=== PATIENT | female | born 1950 | race Asian ===

== ENCOUNTER 2016-06-27 02:11 | Inpatient (IN) | payer OTHER ==
[2016-06-27] VITALS (7 sets, daily range): BP systolic 104–158; BP diastolic 63–88; PULSE 50–86; RESP 14–18; TEMP 97–99.8; O2SAT 95–100
[~2016-06-27] VITALS: Ht 162.6 cm; Wt 63.5 kg
[2016-06-27] MEDS ORDERED: NACL 0.9% 1,000 ML IV ONE (02:22)
[2016-06-27] MEDS ORDERED: MORPHINE 4 MG/ML INJ. SYRINGE IVP ONE (02:30)
[2016-06-27] MEDS ORDERED: KETOROLAC TROMETHAMINE 30 MG VIAL IVP ONE (02:30)
--- NOTE | 2016-06-27 02:33 | NUR ---
Placed in room 6 . Placed on air sampling and monitoring, blood pressure machine and pulse oximeter. To gown for exam. Side rails up.
--- NOTE | 2016-06-27 02:34 | NUR ---
Pt presents to ED with c/o acute onset of suprapubic/lower abdominal pain 12/05, started 1 hour ago. A&Ox4, denies SOB or chestpain, denies N/V/D. Skin intact. Abdomen soft, bowel sound x4. Will continue to monitor
--- NOTE | 2016-06-27 02:37 | NUR ---
MD matthews at bedside examining pt
[2016-06-27 02:47] LABS: HEMOGLOBIN 12.9 g/dL (12.0-16.0); MEAN CORPUSCULAR VOLUME 87 fL (79.0-98.0)
[2016-06-27] MEDS ORDERED: LIP10 PO (02:52)
[2016-06-27] MEDS ORDERED: AMLO5TAB4 PO (02:52)
[2016-06-27] MEDS ORDERED: ASPI-1063 PO (02:52)
--- NOTE | 2016-06-27 02:52 | NUR ---
Medication reconciliation completed with information provided by - verbal from patient. Any prior medication reconciliation on file was reviewed and corrected.
[2016-06-27 03:01] LABS: HEMATOCRIT 39.4 % (36-48); MEAN CORPUSCULAR HEMOGLOBIN 28 pg (27-31); MEAN CORPUSCULAR HGB CONC 33 % (32-36); PLATELET COUNT (AUTO) 233 K/uL (130-430); RED BLOOD CELL COUNT(AUTO) 4.55 MIL/uL (4.2-6.2); RED CELL DISTRIBUTION WIDTH 12.6 % (9.0-15.0); WHITE BLOOD COUNT (AUTO) 15.2 K/uL (4.8-10.8)
[2016-06-27 03:05] LABS: POTASSIUM 3.3 mmol/L (3.5-5.1); SODIUM SERUM 142 mmol/L (136-145)
[2016-06-27 03:06] LABS: ANION GAP 9 (5-15); CALCIUM 10.3 mg/dL (8.4-11.0); CHLORIDE 104 mmol/L (98-107); CREATININE 1.08 mg/dL (0.55-1.30); GFR AFRICAN AMERICAN 66 mL/min (>90); GLUCOSE 116 mg/dL (70-99); UREA NITROGEN, BLOOD 16 mg/dL (8-21)
[2016-06-27 03:14] LABS: BASOPHILS % (MANUAL) 0 % (0-2); EOSINOPHILS % (MANUAL) 0 % (0-7); LYMPHOCYTES % (MANUAL) 28 % (20-46); MONOCYTES % (MANUAL) 2 % (0-11)
[2016-06-27 03:15] LABS: ALANINE AMINOTRANSFERASE 59 U/L (12-78); ALBUMIN 4.2 g/dL (3.4-4.8); ASPARTATE AMINOTRANSFERASE 54 U/L (10-37); TOTAL BILIRUBIN 0.7 mg/dL (0.0-1.0); TOTAL PROTEIN, SERUM 7.3 g/dL (6.4-8.3)
[2016-06-27 03:19] LABS: BILIRUBIN,URINE NEGATIVE (NEGATIVE); BLOOD, URINE NEGATIVE (NEGATIVE); CLARITY/URINE CLEAR (CLEAR); COLOR,URINE YELLOW (YELLOW); GLUCOSE,URINE NEGATIVE (NEGATIVE); KETONES,URINE NEGATIVE (NEGATIVE); LEUKOCYTE ESTERASE ,URINE TRACE (NEGATIVE); NITRITE, URINE NEGATIVE (NEGATIVE); PROTEIN URINE NEGATIVE (NEGATIVE)
[2016-06-27 03:21] LABS: BACTERIA,URINE FEW /HPF (None Seen); MUCUS,URINE None Seen /LPF (None Seen); RBC,URINE 0-3 /HPF (0-3); URINE AMORPHOUS PHOSPHATES 1+ /HPF (None Seen)
--- NOTE | 2016-06-27 03:55 | NUR ---
Pt in bed, stated she feels comfortable, pain 0/10. Will continue to monitor
[2016-06-27] MEDS ORDERED: PROM6.25 PO (04:54)
[2016-06-27] MEDS ORDERED: AMOX-520 PO (04:54)
[2016-06-27] MEDS ORDERED: ACETAMINOPHEN 325 MG TABLET PO PRN (05:15)
[2016-06-27] MEDS ORDERED: MORPHINE 2 MG/ML INJ. SYRINGE IVP PRN (05:15)
[2016-06-27] MEDS ORDERED: ONDANSETRON HCL 4 MG/2 ML VIAL IVP PRN (05:15)
--- NOTE | 2016-06-27 05:35 | NUR ---
Patient will be admitted to care of . Admitted to med-surg unit. Will go to room 135. Belongings list completed. Summary report printed. Report given to Iván DELUCA.
--- NOTE | 2016-06-27 05:36 | NUR ---
Admission Note Received patient from ER with diagnosis of COLITIS AND HYDRONEPHROSIS. Initial Plan of Care discussed-patient verbalized understanding. Family at bedside. Oriented to room, call light, pain management and safety.
--- NOTE | 2016-06-27 05:49 | NUR ---
Consult Called Reason for Consultation: Hydronephrosis Was consult called: Yes Person who was notified:Marcela Consulting Physician: Leander Triplett MD (Kush PGEU[employer] inhalation therapy aides teacher) Gerentological Physiotherapist Specialty: Urology Gerentological Physiotherapist Phone Number; [phone]
--- NOTE | 2016-06-27 05:58 | NUR ---
NOTES; RECEIVED PT VIA Edwige CAVAZOS/DANYELLE. ORIENTED PT TO ROOM AND CALL LIGHT. PT VERBALIZED UNDERSTANDING. NO ACUTE DISTRESS NOTED. VITAL SIGNS STABLE, AFEBRILE. IV SALINE LOCK TO THE RT HAND, GAUGE 20, PATENT. NO SIGNS OF INFECTION NOTED ON IV SITE. DENIES ANY PAIN AT THIS TIME. ALL PERSONAL BELONGINGS INVENTORY DONE. BELONGINGS AT BEDSIDE. ADVISED PT TO CALL FOR ANY NEED TO ASSIST. PT VERBALIZED UNDERSTANDING. BED LOCKED AND IN LOW POSITION,SIDE RAILS UP X3. CALL LIGHT WITHIN REACH. WILL CONTINUE TO MONITOR.
[2016-06-27] MEDS ORDERED: metroNIDAZOLE 500 mg/NS 100 ML IV ONE (06:17)
[2016-06-27] MEDS: metroNIDAZOLE 500 mg/NS 100 ML IV SCH ×3 (06:18→21:18)
--- NOTE | 2016-06-27 06:50 | NUR ---
NOTES; RESTING QUIETLY, EASILY AROUSED. NO ACUTE DISTRESS NOTED. DENIES ANY PAIN AT THIS TIME. SAFETY MEASURES IN PROGRESS.
--- NOTE | 2016-06-27 07:15 | NUR ---
Initial notes: pt sleeping on bed. no distress noted. i.v. in placed. call light within reach. report received at bedside.
[2016-06-27] MEDS: cefTRIAXone 1 GM IVPB PREMIX 50 ML IV SCH (07:29)
--- NOTE | 2016-06-27 07:35 | NUR ---
rounds: pt awake on bed. Administered antibiotic. Assisted pt to toilet. Discussed plan of care.
--- NOTE | 2016-06-27 10:06 | NUR ---
rounds: pt on bed sitting. at bedside. stable.
--- NOTE | 2016-06-27 11:35 | NUR ---
CALLED ATTENDING MD DR RODGERS, RE: MED RECONCILLATION. SPOKE TO LYDIA
--- NOTE | 2016-06-27 13:51 | NUR ---
rounds: pt sleeping on bed. no distress noted. son at bedside.
--- NOTE | 2016-06-27 15:52 | NUR ---
Hola rounds: seen by Dr. Prado. talk to pt.
[2016-06-27] MEDS ORDERED: POTASSIUM CHLORIDE 20 MEQ TAB.PRT.SR PO ONE (16:00)
[2016-06-27] MEDS ORDERED: PANTOPRAZOLE SODIUM 80 MG in NS 100 ML IV ONE (16:00)
--- NOTE | 2016-06-27 16:21 | NUR ---
CALLED GI CONSULT TO DR PURCELL, RE: GI BLEED. SPOKE TO ANDREW
[2016-06-27] MEDS ORDERED: PANTOPRAZOLE SODIUM 40 MG in NS 50 ML IV SCH (16:30)
[2016-06-27] MEDS: PANTOPRAZOLE SODIUM 40 MG in NS 50 ML IV SCH ×2 (16:46→21:13)
--- NOTE | 2016-06-27 16:50 | NUR ---
Bleeding: pt while having BM, still bleeding with small amount of blood.
--- NOTE | 2016-06-27 17:00 | NUR ---
Dr. Flores TJeramie.: Dr. Flores aware pt is bleeding and updated of CT abdomen + pelvis result. Ordered stool culture with Cdiff.
--- NOTE | 2016-06-27 18:30 | NUR ---
STOOL SAMPLE: sample sent to lab for cdiff. not enought for stool culture.
--- NOTE | 2016-06-27 18:54 | NUR ---
closing notes: pt on bed resting. stable. needs attended. i.v. in placed. son at bedside. call light within reach. report will be given to restaurant shift leader nurse.
--- NOTE | 2016-06-27 19:30 | NUR ---
initial nursing notes: Patient is awake. Patient has IV medication infusing on the right hand IV access. Patient's family member at the bedside, visiting the patient.
--- NOTE | 2016-06-27 21:30 | NUR ---
nursing rounds: Patient had a watery stool which was sent to the lab for culture. Patient denies of having pain.
--- NOTE | 2016-06-27 23:30 | NUR ---
nursing rounds: Patient is ambulatory to the bathroom with a steady gait. No falls and no injuries noted.
--- NOTE | 2016-06-28 01:30 | NUR ---
nursing rounds: Patient is asleep. Patient has no shortness of breath.
[2016-06-28] MEDS: PANTOPRAZOLE SODIUM 40 MG in NS 50 ML IV SCH ×3 (03:27→18:07)
--- NOTE | 2016-06-28 03:30 | NUR ---
nursing rounds: Patient is sleeping in bed. Patient has no respiratory distress.
[2016-06-28 03:48] VITALS: BP 109/60; PULSE 66; RESP 16; TEMP 98.2; O2SAT 95
[2016-06-28] MEDS: cefTRIAXone 1 GM IVPB PREMIX 50 ML IV SCH (05:03)
--- NOTE | 2016-06-28 05:30 | NUR ---
nursing rounds: Patient calmly resting in bed. Call light within patient's reach.
[2016-06-28] MEDS: metroNIDAZOLE 500 mg/NS 100 ML IV SCH ×3 (05:38→22:37)
[2016-06-28 07:09] LABS: BASOPHILS % (AUTO) 0.2 % (0.0-2.0); EOSINOPHILS # (AUTO) 0.1 K/uL (0.0-0.4); EOSINOPHILS % (AUTO) 0.6 % (0.0-4.0); HEMATOCRIT 35.9 % (36-48); HEMOGLOBIN 11.8 g/dL (12.0-16.0); LYMPHOCYTES # (AUTO) 1.4 K/uL (1.0-5.5); LYMPHOCYTES % (AUTO) 11.2 % (20.5-51.5); MEAN CORPUSCULAR HEMOGLOBIN 29 pg (27-31); MEAN CORPUSCULAR HGB CONC 33 % (32-36); MEAN CORPUSCULAR VOLUME 87 fL (79.0-98.0); MONOCYTES # (AUTO) 0.7 K/uL (0.0-1.0); MONOCYTES % (AUTO) 5.5 % (1.7-9.3); NEUTROPHILS # (AUTO) 10.4 K/uL (1.8-7.7); NEUTROPHILS % (AUTO) 82.5 % (40.0-70.0); PLATELET COUNT (AUTO) 232 K/uL (130-430); RED BLOOD CELL COUNT(AUTO) 4.11 MIL/uL (4.2-6.2); RED CELL DISTRIBUTION WIDTH 12.6 % (9.0-15.0); WHITE BLOOD COUNT (AUTO) 12.6 K/uL (4.8-10.8)
--- NOTE | 2016-06-28 07:51 | NUR ---
closing nursing notes: Patient is awake, alert and oriented X 4. Patient is in no acute respiratory distress. No episodes of fall and no injuries throughout the cage shift manager. Provided nursing report to incoming morning shift nurse, YOSI Petersen, at patient's bedside.
--- NOTE | 2016-06-28 08:20 | NUR ---
AM ROUNDS Pt sitting up in bed...Denies pain at this time..IV protonix infusing well to RH...Denies N/V/D...Tolerating clear liquids..Will cont to monitor
[2016-06-28 08:42] VITALS: BP 122/69; PULSE 75; RESP 18; TEMP 98; O2SAT 93
[2016-06-28] MEDS ORDERED: ZOLPIDEM TARTRATE 5 MG TABLET PO PRN (09:15)
[2016-06-28] MEDS ORDERED: ACETAMINOPHEN 325 MG TABLET PO PRN (09:15)
[2016-06-28] MEDS ORDERED: MAGNESIUM SULFATE 50 ML IV PRN (09:15)
[2016-06-28] MEDS ORDERED: MORPHINE 2 MG/ML INJ. SYRINGE IVP PRN (09:15)
[2016-06-28] MEDS ORDERED: ONDANSETRON HCL 4 MG/2 ML VIAL IVP PRN (09:15)
[2016-06-28] MEDS ORDERED: LORazepam 2 MG/ML VIAL IVP PRN (09:15)
[2016-06-28] MEDS ORDERED: POTASSIUM CHLORIDE 20 MEQ TAB.PRT.SR PO PRN (09:15)
[2016-06-28] MEDS ORDERED: DOCUSATE SODIUM 100 MG CAPSULE PO PRN (09:15)
--- NOTE | 2016-06-28 09:19 | NUR ---
DR LUGO AT BEDSIDE
[2016-06-28] MEDS: ATORVASTATIN 20 MG TABLET PO SCH (09:22)
[2016-06-28] MEDS: amLODIPine BESYLATE 5 MG TABLET PO SCH (09:23)
--- NOTE | 2016-06-28 11:00 | NUR ---
ROUNDS C/O STILL HAVING SMALL AMOUNT GI BLEED...WITH MILD ABDOMINAL DISCOMFORT, OFFERED PT PAIN MEDICATION, PT REFUSES AT THIS TIME. PAIN IS TOLERABLE AT THIS TIME...WILL CONT TO MONITOR
[2016-06-28 12:00] VITALS: BP 100/73; PULSE 75; RESP 18; TEMP 98.1; O2SAT 94
--- NOTE | 2016-06-28 12:21 | NUR ---
DC PLANNING Spoke w pt & son Maik @ bedside, concerned about hospital coverage from Insurance. Informed that have not received call from insurance group requesting transfer to in network hospital. Insurance group has been notified of admission. Per pt & son are agreeable w transfer if needed per insurance. Educated that could change Med group to one that has contracted hospital's closer to home. Informed that CM would notify them if received request to transfer from insurance medical Grp. Updated, Rut CM Director.
--- NOTE | 2016-06-28 12:47 | NUR ---
Case mgt: I called medical case managermgr Parker at [facility] at [phone] and left to call me to see if pt needs to transfer in-network--waiting for return call back-- RN
[2016-06-28] MEDS: NACL 0.9% 1,000 ML IV SCH ×2 (14:27→23:48)
--- NOTE | 2016-06-28 14:46 | NUR ---
DR PURCELL AT BEDSIDE
[2016-06-28 16:00] VITALS: BP 134/79; PULSE 80; RESP 18; TEMP 98.1; O2SAT 97
--- NOTE | 2016-06-28 16:06 | NUR ---
Case mgt: I placed another call to viki Parkerr at [facility] [phone], left another message to call me back to see if pt is OON and requires transfer in-network--no call back so far-- YOSI
--- NOTE | 2016-06-28 16:12 | NUR ---
STOOL SAMPLE NEEDED FOR CULTURE INFORMED PT OF SAMPLE NEEDED...ALL SUPPLIES PLACED AT BEDSIDE, INSTRUCTED PT TO CALL WHEN SAMPLE LEFT...PT UNDERSTOOD
[2016-06-28] MEDS ORDERED: GOLYTELY / COLYTE SOLUTION 4 LITERS PO ONE (16:30)
--- NOTE | 2016-06-28 16:39 | NUR ---
SPOKE W/DR LUGO REGARDING YESTERDAYS K+ OF 3.3 P.O. K+ NOT GIVEN YESTERDAY..CLARIFIED IF HE WOULD LIKE PT TO RECEIVE THE K+ ...
--- NOTE | 2016-06-28 17:02 | NUR ---
PT OOB AT SINK CLEANING UP PT STABLE...GOLYTELY TO BE STARTED
--- NOTE | 2016-06-28 17:03 | NUR ---
EXPLAINED GOLYTELY TO PT INFORMED PT TO DRINK 8oz Q* 10-15 MINUTES, UNTIL COMPLETE...PT UNDERSTOOD
--- NOTE | 2016-06-28 18:26 | NUR ---
PT AWARE OF NPO STATUS AFTER MIDNIGHT FOR B/E TOMORROW AM
--- NOTE | 2016-06-28 18:26 | NUR ---
STOOL SAMPLE OBTAINED AND SENT TO LAB FOR ANALYSIS
[2016-06-28 20:14] VITALS: BP 114/69; PULSE 75; RESP 15; TEMP 98.7; O2SAT 99
--- NOTE | 2016-06-28 20:16 | NUR ---
OPENING NOTE PATIENT IS A/OX4. NO SIGNS OF DISTRESS. BREATHING IS NON LABORED. VITAL SIGNS ARE STABLE. IV IS PATENT AND SHOWS NO SIGNS OF COMPLICATION. PATIENT IS DRINKING GO-JERED. PATIENT INSTRUCTED TO CALL FOR ASSISTANCE. CALL LIGHT IS WITHIN REACH. WILL CONTINUE TO MONITOR.
--- NOTE | 2016-06-28 22:35 | NUR ---
ROUNDS PATIENT IS IN BED RESTING. NO SIGNS OF DISTRESS. BREATHING IS NON LABORED. WILL CONTINUE TO MONITOR. PATIENT REFUSES BED ALARM. PATIENT INSTRUCTED TO CALL FOR ASSISTANCE. CALL LIGHT IS WITHIN REACH.
[2016-06-29 00:21] VITALS: BP 113/75; PULSE 66; RESP 16; TEMP 98.2; O2SAT 98
--- NOTE | 2016-06-29 00:40 | NUR ---
ROUNDS PATIENT IS IN BED SLEEPING. NO SIGNS OF DISTRESS. BREATHING IS NON LABORED. WILL CONTINUE TO MONITOR. SAFETY MEASURES ARE IN PLACE.
--- NOTE | 2016-06-29 01:39 | NUR ---
PATIENT DRANK 3/4 OF GOLYTELY. PATIENT STATED THAT SHE COULDN'T DRINK ANYMORE. STOOL IS LIGHT RUPERTO COLOR. WITH LITTLE SEDIMENT.
--- NOTE | 2016-06-29 02:09 | NUR ---
ROUNDS PATIENT IS IN BED SLEEPING. NO SIGNS OF DISTRESS. BREATHING IS NON LABORED. SAFETY MEASURES ARE IN PLACE. WILL CONTINUE TO MONITOR.
[2016-06-29 04:10] VITALS: BP 110/74; PULSE 68; RESP 16; TEMP 98.8; O2SAT 98
--- NOTE | 2016-06-29 04:26 | NUR ---
ROUNDS PATIENT IS IN BED RESTING NO SIGNS OF DISTRESS. BREATHING IS NON LABORED. WILL CONTINUE TO MONITOR.
[2016-06-29] MEDS: PANTOPRAZOLE SODIUM 40 MG in NS 50 ML IV SCH ×4 (04:34→13:59)
[2016-06-29] MEDS: NACL 0.9% 1,000 ML IV SCH (05:19)
[2016-06-29] MEDS: metroNIDAZOLE 500 mg/NS 100 ML IV SCH ×2 (05:22→14:00)
[2016-06-29 06:33] LABS: CALCIUM 8.2 mg/dL (8.4-11.0); CREATININE 1.04 mg/dL (0.55-1.30); POTASSIUM 3.6 mmol/L (3.5-5.1)
[2016-06-29] MEDS: cefTRIAXone 1 GM IVPB PREMIX 50 ML IV SCH (06:39)
--- NOTE | 2016-06-29 06:58 | NUR ---
CLOSING NOTES PATIENT IS IN BED SLEEPING. NO SIGNS OF DISTRESS. BREATHING IS NON LABORED. IV IS PATENT AND SHOWS NO SIGNS OF COMPLICATIONS. WILL ENDORSE CARE TO THE MORNING NURSE.
[2016-06-29 07:01] LABS: BASOPHILS % (AUTO) 0.3 % (0.0-2.0); EOSINOPHILS # (AUTO) 0.1 K/uL (0.0-0.4); EOSINOPHILS % (AUTO) 0.9 % (0.0-4.0); HEMATOCRIT 34.9 % (36-48); HEMOGLOBIN 11.5 g/dL (12.0-16.0); LYMPHOCYTES # (AUTO) 1.9 K/uL (1.0-5.5); LYMPHOCYTES % (AUTO) 15.1 % (20.5-51.5); MEAN CORPUSCULAR HEMOGLOBIN 29 pg (27-31); MEAN CORPUSCULAR HGB CONC 33 % (32-36); MEAN CORPUSCULAR VOLUME 87 fL (79.0-98.0); MONOCYTES % (AUTO) 8.1 % (1.7-9.3); NEUTROPHILS # (AUTO) 9.8 K/uL (1.8-7.7); NEUTROPHILS % (AUTO) 75.6 % (40.0-70.0); PLATELET COUNT (AUTO) 218 K/uL (130-430); RED BLOOD CELL COUNT(AUTO) 3.99 MIL/uL (4.2-6.2); WHITE BLOOD COUNT (AUTO) 12.8 K/uL (4.8-10.8)
--- NOTE | 2016-06-29 07:30 | NUR ---
AM ROUNDS Pt sitting up in chair...Denies pain at this time..IV protonix infusing well to RH and IVF to RFA...Denies N/V/D...Pt will have barium enema today. Pt drank about 3/4 of the Golytely has been ambulating to restroom w/steady gait...Pt aware of NPO status for now...Will cont to monitor
--- NOTE | 2016-06-29 09:16 | NUR ---
TRANSPORTED TO RADIOLOGY VIA PT STABLE UPON TRANSPORT
--- NOTE | 2016-06-29 10:30 | NUR ---
BACK TO ROOM FROM XRAY PT STABLE...ANXIOUS TO GET RESULTS...IVF RE-CONNECTED...WILL CONT TO ERIS
[2016-06-29 11:19] VITALS: BP 115/72; PULSE 72; RESP 16; TEMP 98.1; O2SAT 96
[2016-06-29] MEDS: ATORVASTATIN 20 MG TABLET PO SCH (11:19)
[2016-06-29] MEDS: amLODIPine BESYLATE 5 MG TABLET PO SCH (11:19)
--- NOTE | 2016-06-29 14:14 | NUR ---
ROUNDS PT STABLE...SITTING IN CHAIR..NO CHANGES...WILL CONT TO MONITOR
--- NOTE | 2016-06-29 14:47 | NUR ---
DR BIANCA LOPEZ SPOKE WITH SAMMY WITH HOSP EXCHANGED TO PAGED DR PURCELL PER BERTA LUZ.
--- NOTE | 2016-06-29 14:48 | NUR ---
DR JAZZY LOPEZ..PT ANXIOUS TO GET B/E RESULTS
[2016-06-29 15:26] VITALS: BP 118/73; PULSE 75; RESP 16; TEMP 97.4; O2SAT 96
[2016-06-29] MEDS ORDERED: FLA250 PO (16:22)
[2016-06-29] MEDS ORDERED: CIPR-211 PO (16:22)
--- NOTE | 2016-06-29 16:31 | NUR ---
DR PURCELL AT BEDSIDE DISCUSSING PLAN OF CARE W/PT AND SON
--- NOTE | 2016-06-29 17:00 | NUR ---
PT AMBULATING IN HALLWAY W/STEADY GAIT
--- NOTE | 2016-06-29 18:10 | NUR ---
DR LUGO CALLED...GAVE DISCHARGE ORDER FOR PT TO GO HOME FOLLOW UP WITH PCP AND CONTINUE ALL HOME MEDS
--- NOTE | 2016-06-29 18:12 | NUR ---
PT TOLERATED SOFT DIET WELL DENIES N/V/D OR PAIN...PT WILL BE DISCHARGED HOME
[2016-06-29 18:28] VITALS: BP 120/72; PULSE 74; RESP 18; TEMP 98.2; O2SAT 96
--- NOTE | 2016-06-29 18:59 | NUR ---
D/C Patient Patient given medication reconciliation form and D/C instructions. Exit Care provided. Patient verbalized understanding. MD discussed with patient the results and treatment provided. Ambulatory with steady gait for discharge to home. Patient in stable condition, ID band removed. IV catheter removed, intact and dressing applied, no active bleeding. Escript given for Flagyl and Cipro. Patient educated on pain management. All belongings sent with patient. Pt awaiting to pick her up..will monitor until pt leaves
--- NOTE | 2016-06-29 19:20 | NUR ---
PATIENT OFF THE UNIT AND GOING HOME CAME TO PICK UP AND TAKE HER HOME. PATIENT WAS ESCORTED TO HER CAR WITH YOSI WONG. PATIENT WAS OFFERED A WHEEL CHAIR, BUT DECLINED. PATIENT WANTED TO WALK. GAIT IS STEADY.
== END 2016-06-29 19:20 | disposition home or self-care (01) | DRG 872 ==
LOC: SED 02:11 → SMU 05:20
PROVIDERS: ADMIT Internal Medicine; ATTEND General Practice
DX: A41.9 Sepsis, unspecified organism (principal); N13.30 Unspecified hydronephrosis; N39.0 Urinary tract infection, site not specified; E87.6 Hypokalemia; K52.9 Noninfective gastroenteritis and colitis, unspecified; I10 Essential (primary) hypertension; N26.1 Atrophy of kidney (terminal); Z90.710 Acquired absence of both cervix and uterus; D64.9 Anemia, unspecified; Z79.82 Long term (current) use of aspirin; Z79.899 Other long term (current) drug therapy
CPT/HCPCS: 36415; 74270-TC; 80048; 80053; 81000-TC; 83735-TC; 84484; 85007; 85025; 85027; 87040-TC; 87045-TC; 87046; 87086; 87230-TC; 93005; 96361; 96374; 99285; C9113; J0696; J1885; J2270; J3490; J7030; J7050

== ENCOUNTER 2019-10-16 11:34 | Emergency (ER) | payer OTHER, MEDICARE ==
[~2019-10-16] VITALS: Ht 162.6 cm; Wt 53.5 kg
[~2019-10-16 11:34] MED LIST: AMLO5TAB4 PO; CIPR-211 PO; FLA250 PO; LIP10 PO; PROM6.256 PO
[2019-10-16 11:54] VITALS: BP_SYST 147
--- NOTE | 2019-10-16 12:00 | NUR ---
Patient triaged and placed in waiting room. VSS and patient appears in no acute distress at this time. Awaiting available bed, and MD notified of need for MSE.
--- NOTE | 2019-10-16 13:36 | NUR ---
Patient to ER bed 2 to gown for evaluation. Side rails up. Report given to YOSI Evans.
--- NOTE | 2019-10-16 13:40 | NUR ---
ASSUMED CARE OF PT. PT ATTACHED TO MONITOR. SIDE RAILS UP.
--- NOTE | 2019-10-16 13:41 | NUR ---
PT AAO AND AMBULATORY C/O ABDOMINAL PAIN X 3 DAYS WITH NAUSEA. PT REPORTS 6/10 PAIN SCALE.
--- NOTE | 2019-10-16 13:50 | NUR ---
ER Dr. CARBONE at bedside examining patient.
--- NOTE | 2019-10-16 14:02 | NUR ---
PT TO CT SCAN VIA RSWITZER.
--- NOTE | 2019-10-16 14:11 | NUR ---
PT BACK FROM CT SCAN.
--- NOTE | 2019-10-16 14:33 | NUR ---
LABS DRAWN BY
[2019-10-16 14:39] LABS: BILIRUBIN,URINE NEGATIVE (NEGATIVE); BLOOD, URINE NEGATIVE (NEGATIVE); CLARITY/URINE CLEAR (CLEAR); COLOR,URINE YELLOW (YELLOW); GLUCOSE,URINE NEGATIVE (NEGATIVE); KETONES,URINE NEGATIVE (NEGATIVE); LEUKOCYTE ESTERASE ,URINE NEGATIVE (NEGATIVE); NITRITE, URINE NEGATIVE (NEGATIVE); PROTEIN URINE NEGATIVE (NEGATIVE); UROBILINOGEN,URINE 0.2 (0.2-1.0)
[2019-10-16 14:56] LABS: BASOPHILS # (AUTO) 0.2 K/uL (0.0-0.2); BASOPHILS % (AUTO) 2.2 % (0.0-2.0); EOSINOPHILS # (AUTO) 0.1 K/uL (0.0-0.4); EOSINOPHILS % (AUTO) 0.8 % (0.0-4.0); HEMATOCRIT 43.9 % (36-48); LYMPHOCYTES % (AUTO) 28.1 % (20.5-51.5); MEAN CORPUSCULAR HEMOGLOBIN 28 pg (27-31); MEAN CORPUSCULAR HGB CONC 32 % (32-36); MEAN CORPUSCULAR VOLUME 87 fL (79.0-98.0); MONOCYTES # (AUTO) 0.4 K/uL (0.0-1.0); MONOCYTES % (AUTO) 5.2 % (1.7-9.3); NEUTROPHILS # (AUTO) 4.5 K/uL (1.8-7.7); NEUTROPHILS % (AUTO) 63.7 % (40.0-70.0); PLATELET COUNT (AUTO) 281 K/uL (130-430); RED BLOOD CELL COUNT(AUTO) 5.06 MIL/uL (4.2-6.2); RED CELL DISTRIBUTION WIDTH 14.2 % (9.0-15.0)
[2019-10-16 15:01] LABS: CALCIUM 9.6 mg/dL (8.4-11.0); CREATININE 0.84 mg/dL (0.55-1.30); POTASSIUM 3.9 mmol/L (3.5-5.1)
[2019-10-16 15:06] LABS: ALBUMIN 4.1 g/dL (3.4-4.8); TOTAL BILIRUBIN 0.7 mg/dL (0.0-1.0)
--- NOTE | 2019-10-16 15:15 | NUR ---
PT RESTING QUIETLY IN NO DISTRESS AWAITING DISPOSITION.
[2019-10-16 16:00] VITALS: BP_SYST 147
--- NOTE | 2019-10-16 16:00 | NUR ---
Patient given written and verbal discharge instructions and verbalizes understanding. DR. TONA RESENDEZ MD discussed with patient the results and treatment provided. Patient in stable condition. ID arm band removed. IV catheter removed intact and dressing applied, no active bleeding. Rx of CIPRO AND PROTOIX given. Patient educated on pain management and to follow up with PMD. Pain Scale 2/10. Opportunity for questions provided and answered. Medication side effect fact sheet provided.
== END 2019-10-16 16:00 | disposition home or self-care (01) ==
LOC: SED 11:34
DX: R10.84 Generalized abdominal pain (principal); I10 Essential (primary) hypertension; Z79.899 Other long term (current) drug therapy
CPT/HCPCS: 36415; 80053; 81003; 83690-TC; 85025; 99284